=== PATIENT | female | born 1965 | race Caucasian/White ===

== ENCOUNTER 2016-09-01 17:30 | Inpatient (IN) | payer BC ==
[~2016-09-01] VITALS: Ht 160 cm; Wt 90.0 kg
--- NOTE | ~2016-09-01 | DS ---
PATIENT'S NAME: DARLING FINLEY [facility] AGE: 51 Y [address] ROOM: [id number] [place], [place] [address] LOCATION: GICU ADMIT DATE: 09/01/2016 Discharge Summary DISCHARGE DATE: 09/03/2016 FAMILY PHYSICIAN: PHYSICIAN, NO ATTENDING PHYSICIAN: Antonella Alfaro HOSPITAL COURSE: This 51-year-old lady was admitted to the hospital primarily because of onset of severe headache that started 2 weeks prior to admission. Investigations carried out in [place] showed that she had a blocked SKILLS INSTRUCTOR shunt. She had a SKILLS INSTRUCTOR shunt put in years ago and has had 1 to 3 revisions since then. The last one was done in 2007. The scan done in [place] shows that the ventricles are lot larger than what they were in 2008 post revision of the shunt. At the time of admission, she was awake, she was alert, however, she was bradycardic and consequent to that, I elected to take her to the operating room immediately that same night and had the upper end of the SKILLS INSTRUCTOR shunt revised. We did not need to change the catheter because on pulling back a bit of the ventricular catheter, the CSF came out copiously. Whereas prior to that, there was no drainage from the ventricles. We went ahead and connected the old ventricular catheter after shortening it to the valve, and postoperatively, she did quite well. A repeat CT scan showed complete decompression of the ventricles as it was in 2007. Postoperatively, her bradycardia persisted. She was seen by fence maker, Dr. Garduno, who worked her up and really did not see any need for intervention. At the time of discharge, she was still bradycardic, the pulse was 59, her blood pressure was stable, and she was consequently discharged to be seen in the clinic by Dr. Zhang a week from the time of discharge. At which time, the stitches will be removed, and then Dr. Zhang will be following her with regard to the bradycardia. If he gets worried, I guess he would get Dr. Garduno to see her again. I would see her in my clinic in 3 weeks, and in the mean time, I wanted to stay her off work till I see her in 3 weeks. FINAL DIAGNOSIS: Blocked upper end of SKILLS INSTRUCTOR shunt. MD DMITRI BALTAZAR/renzo /[id number] d: 09/03/16 2304 t: 09/19/16 1550, DISCHARGE SUMMARY
--- NOTE | ~2016-09-01 | CON ---
PATIENT'S NAME: DARLING FINLEY [facility] AGE: 51 Y [address] ROOM: [id number] [place] [address] LOCATION: GICU ADMIT DATE: 09/01/2016 Consultation DISCHARGE DATE: FAMILY PHYSICIAN: PHYSICIAN, NO ATTENDING PHYSICIAN: Antonella Alfaro REFERRING PHYSICIAN: Kelle Garduno MD REASON FOR CARDIOLOGY CONSULT: Bradycardia. HISTORY OF PRESENT ILLNESS: This is a 51-year-old female, who initially presented to [facility] with complaints of headache. She has a previous history of a SORT LINE WORKER shunt implantation after meningitis and encephalitis when she was in her teenage years. She has had multiple previous revisions of the shunt and as of this dictation is currently status post another shunt revision per Neurosurgery. Prior to admission, she had no complaints of presyncope or syncope, chest pain, shortness of breath, palpitations, nausea or vomiting. Her only complaint was of headache. Overall, she had no other symptoms with ordinary activities. Once again, this consult requested due to the patient being bradycardic on her telemetry. PAST MEDICAL HISTORY: 1. 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 2. History of cellulitis in her left leg in 2014. 3. Depression. PAST SURGICAL HISTORY: 1. SORT LINE WORKER shunt placed in 1982. 2. Shunt replacement in 1983. 3. Shunt revision in 1988. 4. Shunt revision in 2007. 5. in 1998. FAMILY HISTORY: The patient's mother had a history of lung cancer in her early 60s. Her father has a history of myocardial infarctions, pacemaker and ICD. SOCIAL HISTORY: The patient is a current daily cigarette smoker. She smoked 1 pack per day for the last 35 years. She denies alcohol or illicit drug use. CURRENT MEDICATIONS: 1. Zoloft 50 mg p.o. daily in the evening. 2. NicoDerm 21 mg transdermally daily. PATIENT'S NAME: DARLING FINLEY [facility] AGE: 51 Y [address] ROOM: [id number] [place], [place] [address] LOCATION: GICU ADMIT DATE: 09/01/2016 Consultation DISCHARGE DATE: FAMILY PHYSICIAN: PHYSICIAN, NO ATTENDING PHYSICIAN: Antonella Alfaro MEDICATION ALLERGIES: 1. Penicillin. 2. Latex causing rash. REVIEW OF SYSTEMS: Pertinent positive review of systems listed in the HPI. All other review of systems evaluated and negative. PHYSICAL EXAMINATION: VITAL SIGNS: Temperature 98.2, pulse 59, respirations 20, blood pressure 145/65, and O2 saturation 95% on room air. The patient weighs 90 kg. SKIN: [place], warm, and dry. EYES: Sclerae clear. No xanthelasmas. ENT: Oral mucosa is pink and moist. No jugular venous distention or carotid bruits. CHEST: Respirations are even and unlabored. LUNGS: Clear to auscultation. HEART: Regular rate and rhythm. Normal S1, S2. No murmurs, rubs, or gallops. ABDOMEN: Soft, nontender. MUSCULOSKELETAL: Equal muscle strength in the upper and lower extremities bilaterally against resistance. EXTREMITIES: Peripheral pulses palpable, though her lower extremity pulses are only 1+. No clubbing, cyanosis, or edema noted. PSYCH: Alert and oriented. Mood and affect are appropriate. IMPRESSION AND PLAN: Per Dr. Garduno: 1. Bradycardia, currently asymptomatic. Her echocardiogram shows no acute wall motion abnormalities or valvular abnormalities. Her ejection fraction is 60%. Also her thyroid evaluation as well as review of medications show no blatant cause of bradycardia. She has no high-grade atrioventricular blocks noted. We will continue to monitor this syndrome for possible symptomatology. 2. History of SORT LINE WORKER shunt and currently status post a revision. 3. Hypertension. 4. Obesity. We will continue to monitor, evaluate, and treat as appropriate. Thank you for this consult. Thank you for allowing [facility] to interact in the care of this patient. PATIENT'S NAME: DARLING FINLEY [facility] AGE: 51 Y [address] ROOM: [id number] [place], [place] [address] LOCATION: [facility] ADMIT DATE: 09/01/2016 Consultation DISCHARGE DATE: FAMILY PHYSICIAN: PHYSICIAN, NO ATTENDING PHYSICIAN: Antonella Alfaro APRN FOR MD MAX KAUFMAN/renzo /[id number] d: 09/03/1645 t: 09/22/16819, CONSULTATION REPORT
--- NOTE | ~2016-09-01 | OR ---
PATIENT'S NAME: DARLING FINLEY [facility] AGE: 51 Y [address] ROOM: [address] [address] LOCATION: CU ADMIT DATE: 09/01/2016 OR/Procedure Report DISCHARGE DATE: FAMILY PHYSICIAN: PHYSICIAN, NO ATTENDING PHYSICIAN: Antonella Alfaro SURGEON: Antonella Alfaro MD LENS GENERATOR: DATE OF PROCEDURE: 09/01/2016 PREOPERATIVE DIAGNOSIS: Blocked CAKE ICER shunt. POSTOPERATIVE DIAGNOSIS: Blocked upper end of CAKE ICER shunt, ventricular catheter. OPERATION PROPOSED AND PERFORMED: Revision of CAKE ICER shunt, upper end. PROCEDURE: Under general anesthesia, the patient was positioned supine. The right frontotemporal, parietooccipital region, neck, chest, and abdomen were shaved, prepped, and draped in the usual fashion. Next, a curvilinear incision was then carried out in the right frontal region just medial to the previous incision. This enabled us to then expose the ventricular catheter and the proximal portion of the valve. On this exposure, we then went ahead and pumped the reservoir and it stayed umbilicated indicating that the ventricular catheter was blocked. Next, we disconnected the ventricular catheter from the valve and there was no fluid egress. Since there was no fluid coming out of the ventricular catheter, we were able to change the ventricular catheter, pulling it back. The catheter started draining, was draining copiously. We therefore went ahead, shortened the catheter, and connected it back to the valve, and then connecting it to the valve, we then pumped the valve. On pumping the valve, it pumped quite well. Consequently, we tied the ventricular catheter to the valve and then put a stitch around the junction of the ventricular catheter and the valve and the pericranium to hold it in place. The wound was thoroughly irrigated with bacitracin irrigation and closed in a single layer using 3-0 nylon mattress sutures. The patient tolerated the procedure well and was taken to the recovery room. MD DMITRI BALTAZAR/renzo /[id number] d: 09/02/16 0133 t: 09/03/16 1517, OPERATIVE SUMMARY
--- NOTE | ~2016-09-01 | ECHO ---
Transthoracic Echocardiography Report (TTE) Demographics Patient Name DARLING FINLEY Date of Study 09/02/2016 A Patient Number [id number] Visit Number [id number] Date of 1965 Room Number [id number] Gender Female Number Age 51 year(s) Referring Angelina Art Maritime Guard Joselin Lugo RVT, Physician RD Physician Interpreting Shaan Paris Relocation Associate Physician Marie KAY Supervising Ordering Angelina Art MD, MD/MLP Physician Nurse Stress Storage Architect Conclusions Contractility Score Summary Normal Left Ventricular contractility was noted. Summary The estimated left ventricular ejection fraction is 60%. Mild concentric left ventricular hypertrophy. Diastolic assessment reveals normal relaxation. Procedure Type of Study TTE procedure:2D Echocardiogram. Procedure Date Date: 09/02/2016 Start: 01:48 PM Study Location: Inpatient Portable Technical Quality: Adequate visualization Indications:Bradycardia. Appropriate Use Criteria: 8 Patient Status: Routine Rhythm: Sinus bradycardia HR: 48 bpm BP: 117/55 mmHg M-Mode/2D Measurements LV Diastolic Dimension: 4.55 cm LV Systolic Dimension: 3.15 cm LV Septum Diastolic: 1.16 cm LV PW Diastolic: 0.96 cm AO Root Dimension: 2.9 cm Cardiac Output: 4.08 l/min LA Dimension: 3.6 cm EF Estimated: 60 % LVOT: 1.9 cm LVOT VTI: 30 cm LV Stroke volume: 85.02 ml TDI-S': 15.8 cm/s Doppler Measurements AV Peak Velocity: 1.49 m/s MV Peak E-Wave: 1.12 m/s AV Peak Gradient: 8.88 mmHg MV Peak A-Wave: 0.72 m/s AV Mean Gradient: 5 mmHg MV E/A Ratio: 1.56 LVOT Peak Velocity: 1.17 m/s MV P1/2t: 66 msec TR Gradient:15.05 mmHg PV Peak Velocity: 0.99 m/s Estimated RAP:5 mmHg PV Peak Gradient: 3.94 mmHg Estimated RVSP: 20 mmHg Estimated PASP: 20.05 mmHg E' Septal Velocity: 0.07 m/s A' Septal Velocity: 0.1 m/s E' Lateral Velocity: 0.14 m/s A' Lateral Velocity: 0.12 m/s Findings Left Ventricle Mild concentric left ventricular hypertrophy. Diastolic assessment reveals normal relaxation. Right Ventricle Normal right ventricle structure and function. Left Atrium Normal left atrial size. There is no evidence of patent foramen ovale or atrial septal defect by color Doppler. Right Atrium Normal right atrial size. IVC measures 2.11 cm with inspiratory collapse. Mitral Valve Normal mitral valve structure and function. Aortic Valve Normal aortic valve structure and function. Tricuspid Valve Normal tricuspid valve structure and function. Pulmonic Valve Normal pulmonic valve structure and function. Pericardial Effusion No evidence of pericardial effusion. Miscellaneous Visualized portions of the aortic root and ascending aorta appear normal in size. Pleural Effusion No evidence of pleural effusion. Contractility Score LV regional wall motion:(0-Non visualized 1-Normal 2-Hypokinesis 3-Akinesis 4-Dyskinesis 5-Aneurysm) Signature dtt: Kelle Garduno dtd: 09/02/16 8345 Physician Self Edit
--- NOTE | ~2016-09-01 | HP ---
PATIENT'S NAME: DARLING FINLEY [facility] AGE: 51 Y [address] ROOM: [id number] [place] [address] LOCATION: [facility] ADMIT DATE: 09/01/2016 History & Physical DISCHARGE DATE: FAMILY PHYSICIAN: PHYSICIAN, NO ATTENDING PHYSICIAN: Anotnella Alfaro DATE OF SERVICE: HISTORY OF PRESENT ILLNESS: This is a 51-year-old female, who was transferred here from [place]. She has a 2-week history of headaches, which got worse today, was accompanied by heaving, but she did not vomit. She said she had an episode of blurring of vision, which has since improved. The headache is really low, was located in the suboccipital region. She took ibuprofen and headache is really not that bad at the present time. Relevant past medical history is that she had a BENEFITS DIRECTOR shunt put in 1982, this was revised in 1988, and in 2007 she had another revision where a new set of BENEFITS DIRECTOR shunt was put in. She has been doing well until 2 weeks ago. She has not noticed any weakness in her arms or legs. No numbness or tingling. PAST MEDICAL HISTORY: Cholecystectomy and . SOCIAL HISTORY: She smokes 3/4 of a pack of cigarettes per day. Does not drink alcohol. ALLERGIES: SHE IS ALLERGIC TO PENICILLIN. MEDICATIONS: See the admitting note. REVIEW OF SYSTEMS: Presently, she has a mild headache. No neck pain. No chest pain. No abdominal pain. No weakness in the upper or lower extremities. PHYSICAL EXAMINATION: VITAL SIGNS: On examination in the hospital; this is a 51-year-old female, who is 5 feet and 3 inches tall. Blood pressure was 173/80, pulse was 53 and regular, and respirations were 16. GENERAL: She was awake. She was alert. Her Coffeen coma Score was 15. Answered questions appropriately. Obeyed commands. HEENT: She has a shunt reservoir in the right frontal region, which pumps and fills quite adequately. NECK: There was no tenderness on palpating the cervical spinous processes. PATIENT'S NAME: DARLING FINLEY [facility] AGE: 51 Y [address] ROOM: [id number] [place] [address] LOCATION: GICU ADMIT DATE: 09/01/2016 History & Physical DISCHARGE DATE: FAMILY PHYSICIAN: PHYSICIAN, NO ATTENDING PHYSICIAN: Antonella Alfaro No restriction of movement of the cervical spine. CHEST: Clear. HEART: Heart rate was regular, but bradycardic. ABDOMEN: Soft. No tenderness. NEUROLOGIC: Cranial nerve examination was normal. The motor examination was normal. The sensory exam was normal. Reflexes were brisk bilaterally, both symmetrically. The toes were downgoing. DIAGNOSTIC DATA: Review of the CT scan of the brain that was done today, comparison to that which was done in 2007. In 2008, the ventricles were completely decompressed whereas in the scan done today the ventricles ventriculomegaly. Consequently, I feel that the shunt is blocked. I will need to take her to the operating room and revise the shunt. I explained the procedure to her and arrangements were made for this to be carried out. MD DMITRI BALTAZAR/samantal /[id number] D: [id number] T: [id number] HISTORY & PHYSICAL
[2016-09-01] MEDS ORDERED: ZOLOFT100 MG PO (20:37)
--- NOTE | 2016-09-02 02:16 | NUR ---
Patient arrived to [facility] via private automobile. Arrived to the unit at 2015 per wheel chair accompanied by . VSS. Patient is alert. 98.2-53-16-97%-173/83. Has had several revisions of VENEER DRIER TAILER shunt. Was experiencing SALAZAR's that would not go away, went to clinic in [place] and was referred here. Family at bedside.
--- NOTE | 2016-09-02 05:34 | NUR ---
Significant Event: Patient is alert and oriented x3. Follows commands. Denies N/T or blurred vision. VSS. Strong strength. PERRLA. SB-SR. Room air to 1L. Last Bm 09/01. Clear diet. Bedrest. Drsg to right head C/D/I . PIV in r) wrist with NS at 125. Follow up: Monitor neuros and vitals
[2016-09-02 15:23] LABS: CPK 54 IU/L (21-215)
--- NOTE | 2016-09-02 16:03 | NUR ---
Introduced self and role of care management to patient, her , several children and her sister. Patient lives with family in [place]. She plans home when ready for discharge. She hoping to go home tomorrow, but says order checker packer processer is to come see her. Does not anticipate discharge needs. Will follow.
--- NOTE | 2016-09-02 16:17 | NUR ---
Significant Event:Patient is alert and oriented times three. Slurred speech noted at times. PERRLA. Stated this morning blurred/double vision noted. Dr. Alfaro notified and CT scan of the head performed. Moves all extremities spontaneously and on command. Equal strength noted throughout. Bradycardic, lowest heart rate this shift was 39. Dr. Alfaro notified and Dr. Garduno consulted. EKG, Echo, and labs performed. All other vss on room air. Lungs clear in the upper lobes and clear and diminished in the bases. Bowel sounds active. Patient voids per the bathroom with 1 assist. Complaints of pain to the incision site that has been relieved with Tylenol. Peripheral IV is saline locked. Follow up:Discharge tomorrow.
--- NOTE | 2016-09-03 05:24 | NUR ---
Significant Event: Patient is alert and oriented x 3. Denies numbness or tingling. C/O headache to right side of head, states she thinks it is more incisional. Denies change in vision. Lisp. [place]. Moves spontaneously and follows commands with equal strength. PERRLA. 2+ pulses. Edema to bilateral feet. Bradycardic and HTN. Afebrile. On room air. Lungs clear and diminished. Bowel sounds active. Voids per restroom. SBA. Tylenol for pain. PIV SL with no complications. Refused SCDs. Dressing to head C/D/I. Follow up: monitor neuro, home today, pain management
== END 2016-09-03 15:34 | disposition disaster alternative care site (69) | DRG 33 ==
LOC: GICU 19:45
PROVIDERS: ADMIT Neurological Surgery
PROC: 00W63JZ Revision of Synthetic Substitute in Cerebral Ventricle, Percutaneous Approach (ICD-10-PCS; principal; 2016-09-01)
PROC: B246ZZZ Ultrasonography of Right and Left Heart (ICD-10-PCS; 2016-09-02)
DX: T85.890A Other specified complication of nervous system prosthetic devices, implants and grafts, initial encounter (principal); I10 Essential (primary) hypertension; F17.210 Nicotine dependence, cigarettes, uncomplicated; Y75.1 Therapeutic (nonsurgical) and rehabilitative neurological devices associated with adverse incidents; H53.8 Other visual disturbances; Z90.49 Acquired absence of other specified parts of digestive tract; E66.9 Obesity, unspecified; R00.1 Bradycardia, unspecified; Z68.35 Body mass index [BMI] 35.0-35.9, adult
CPT/HCPCS: J1100; J2405; J3370; J7030; J7040

== ENCOUNTER → 2016-10-21 | Outpatient (CLI) | payer BC ==
[~2016-10-21] MED LIST: ZOLOFT100 MG PO
== END | disposition disaster alternative care site (69) ==
LOC: GRAD 12:53
DX: R51 Headache (principal)